=== PATIENT | male | born 2000 | race Caucasian/White ===

== ENCOUNTER 2019-08-29 20:49 | Emergency (ER) | payer OTHER, SELFPAY ==
[~2019-08-29] VITALS: Ht 172.7 cm; Wt 71.8 kg
[2019-08-29 20:49] VITALS: BP 141/87
[2019-08-29] MEDS ORDERED: IBUP200T45 PO (20:54)
[2019-08-29] MEDS ORDERED: QC A650T3 PO (20:54)
[2019-08-29] MEDS ORDERED: LIDOCAINE W/EPINEPHRINE 1% 20ML VIAL As Ordered ONE (21:09)
[2019-08-29] MEDS ORDERED: LIDOCAINE W/EPINEPHRINE 1% 20ML VIAL SC ONE (21:15)
[2019-08-29] MEDS ORDERED: LIDOCAINE 2% W/EPIN INJ 20ML **PRES FREE INJ ONE (21:15)
[2019-09-01] MEDS ORDERED: KEFL500C17 PO (12:05)
== END 2019-08-29 21:58 | disposition home or self-care (01) ==
LOC: M ED 20:49
DX: L02.31 Cutaneous abscess of buttock (principal); Z86.14 Personal history of Methicillin resistant Staphylococcus aureus infection